=== PATIENT | female | born 1960 ===

== ENCOUNTER 2017-01-22 08:59 | Emergency (ER) | payer OTHER ==
[2017-01-22 09:01] VITALS: PULSE 78; TEMP 97; BMI 30.2
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
[2017-01-22] MEDS ORDERED: Oxycodone/Acetaminophen 5/325 mg Tab PO STA (12:32)
[2017-01-22 13:03] VITALS: BP 122/75; RESP 14
[2017-02-01 09:47] VITALS: O2SAT 99
== END 2017-01-22 13:02 | disposition home or self-care (01) ==
LOC: H.ER 08:59
DX: S09.90XA Unspecified injury of head, initial encounter (principal); M79.1 Myalgia; V49.40XA Driver injured in collision with unspecified motor vehicles in traffic accident, initial encounter; Y93.9 Activity, unspecified